=== PATIENT | female | born 1960 | race Caucasian/White ===

== ENCOUNTER 2021-01-29 16:41 | Outpatient (CLI) | payer OTHER, SELFPAY ==
[2021-01-29 18:08] LABS: SARS-CoV-2 Ag Negative (Negative)
[2021-02-02 13:04] LABS: SARS-CoV-2 RNA PCR Negative (Negative)
== END 2021-01-29 16:42 | disposition home or self-care (01) ==
LOC: CHSLAB 16:46
PROVIDERS: PCP Family Medicine; Visit Provider Family Medicine
DX: Z20.822 Contact with and (suspected) exposure to COVID-19 (principal)
CPT/HCPCS: 87426; C9803; U0003; U0005